=== PATIENT | female | born 1930 | race Caucasian/White ===

== ENCOUNTER 2017-01-04 15:02 | Inpatient (IN) | payer OTHER ==
[~2017-01-04] VITALS: Ht 170.2 cm; Wt 56.7 kg
[2017-01-04] VITALS: BP 125/62; PULSE 76; RESP 18; TEMP 98.6; O2SAT 95
[2017-01-04 15:02] VITALS: BP 115/63; PULSE 66; RESP 17; TEMP 97.7; O2SAT 100
--- NOTE | 2017-01-04 15:02 | NUR ---
BIB [facility] from home, Placed in room 04. Placed on monitoring specialist, blood pressure machine and pulse oximeter. To gown for exam. Side rails up. Report given to TREVIN Parsons.
--- NOTE | 2017-01-04 15:10 | NUR ---
ER at bedside examining patient.
--- NOTE | 2017-01-04 15:15 | NUR ---
PT AAOX4,COOPERATIV EW/EXAMINATION.IV 20G LAC FROM LACF IVF NS INFUSING.PT HAS NO C/O PAIN AT THIS.FAMILY AT BEDSIDE REPORTS SYNCOPAL EPUISODE X 2 W/O HEAD OR NECK TRAUMA. PT H/I DEMENTIA AND HTN. WILL MONITOR.
[2017-01-04 15:42] LABS: BASOPHILS # (AUTO) 0.1 K/uL (0.0-0.2); BASOPHILS % (AUTO) 1.5 % (0.0-2.0); EOSINOPHILS # (AUTO) 0.1 K/uL (0.0-0.4); HEMATOCRIT 39.6 % (36-48); HEMOGLOBIN 13.2 g/dL (12.0-16.0); LYMPHOCYTES % (AUTO) 16.6 % (20.5-51.5); MEAN CORPUSCULAR HEMOGLOBIN 31 pg (27-31); MEAN CORPUSCULAR HGB CONC 33 % (32-36); MEAN CORPUSCULAR VOLUME 92 fL (79.0-98.0); MONOCYTES # (AUTO) 0.5 K/uL (0.0-1.0); NEUTROPHILS # (AUTO) 4.2 K/uL (1.8-7.7); NEUTROPHILS % (AUTO) 71.9 % (40.0-70.0); PLATELET COUNT (AUTO) 154 K/uL (130-430); RED BLOOD CELL COUNT(AUTO) 4.28 MIL/uL (4.2-6.2); RED CELL DISTRIBUTION WIDTH 14.1 % (9.0-15.0); WHITE BLOOD COUNT (AUTO) 5.9 K/uL (4.8-10.8)
[2017-01-04 15:49] LABS: ANION GAP 6 (5-15); CALCIUM 9.5 mg/dL (8.4-11.0); CHLORIDE 108 mmol/L (98-107); CREATININE 1.56 mg/dL (0.55-1.30); GLUCOSE 85 mg/dL (70-99); POTASSIUM 4.7 mmol/L (3.5-5.1); SODIUM SERUM 138 mmol/L (136-145); UREA NITROGEN, BLOOD 31 mg/dL (8-21)
[2017-01-04 15:54] LABS: ALANINE AMINOTRANSFERASE 17 U/L (12-78); ALBUMIN 3.3 g/dL (3.4-4.8); ASPARTATE AMINOTRANSFERASE 21 U/L (10-37); TOTAL BILIRUBIN 0.4 mg/dL (0.0-1.0); TOTAL PROTEIN, SERUM 6.9 g/dL (6.4-8.3)
--- NOTE | 2017-01-04 16:30 | NUR ---
PT AAO,VSS ,NO ACUTE DISTRESS NOTED.CONTINUING TO MONITOR.
--- NOTE | 2017-01-04 18:30 | NUR ---
evaluating pt in ED
[2017-01-04] MEDS ORDERED: ACETAMINOPHEN 500 MG TABLET PO PRN (18:45)
[2017-01-04] MEDS ORDERED: ZOLPIDEM TARTRATE 5 MG TABLET PO PRN (18:45)
--- NOTE | 2017-01-04 19:00 | NUR ---
Patient will be admitted to care of . Admitted to [] unit. Will go to room []. Belongings list completed. Summary report printed. Report given to [].
--- NOTE | 2017-01-04 19:16 | NUR ---
ADMIT NOTE Received pt from ER to the floor with a diagnosis of syncope. Admission process initiated. patient oriented to pain management, safety and call light-teach back done.
[2017-01-04 19:27] VITALS: BP 142/85; PULSE 66; RESP 18; TEMP 98; O2SAT 95
[2017-01-04] MEDS ORDERED: ASPIRIN 81 MG TAB.CHEW PO ONE (19:30)
--- NOTE | 2017-01-04 19:30 | NUR ---
ROUNDS PATIENT IN BED, AWAKE, ALERT, CONFUSED, VITALS STABLE. NO PAIN AND DISCOMFORT AT THIS TIME. ADMISSION ASSESSMENT DONE AND DOCUMENTED. SEE FLOWSHEET. ORIENTED TO HER ROOM, PHONE AND CALL LIGHT. SAFETY AND FALL PRECAUTION MEASURES IN PLACED. BED IN LOW AND LOCKED POSITION. BED ALARM ON. CALL LIGHT PLACED WITH PATIENT.
--- NOTE | 2017-01-04 20:22 | NUR ---
PAGED RADHA STEWARD.
--- NOTE | 2017-01-04 20:28 | NUR ---
DR. COHEN CALLED DR. HIDALGO, TROPONIN 0. 074. NEW ORDER GIVEN FOR COREG 3. 125 MG BID. WILL CONTINUE TO MONITOR.
--- NOTE | 2017-01-04 20:38 | NUR ---
CONSULT: DR ZABALA Consult was called, RE syncope apple Lopez
--- NOTE | 2017-01-04 20:40 | NUR ---
CONSULT: DR Parris GERBER Consult was called, RE syncope Jessica
[2017-01-04] MEDS: CARVEDILOL 3.125 MG TABLET (COREG) PO SCH (22:15)
[2017-01-04] MEDS: NORMAL SALINE 5 ML DISP.SYRIN IVF SCH (22:16)
--- NOTE | 2017-01-05 | NUR ---
PATIENT RESTING: Patient resting quietly. No acute distress noted. Vital signs within normal range.
--- NOTE | 2017-01-05 02:10 | NUR ---
PATIENT RESTING: Patient resting quietly. No acute distress noted. Vital signs within normal range.
[2017-01-05 04:05] VITALS: BP 118/61; PULSE 62; RESP 16; TEMP 98.2; O2SAT 96
--- NOTE | 2017-01-05 04:15 | NUR ---
DR. HIDALGO CALLED DR. HIDALGO FOR TROPONIN 0. 083, NO NEW ORDER GIVEN. WILL CONTINUE TO MONITOR.
--- NOTE | 2017-01-05 04:15 | NUR ---
PAGED DR HIDALGO, RADHA ENAMORADO.
--- NOTE | 2017-01-05 05:56 | NUR ---
2D ECHO: NOTIFIED VIA [facility].
[2017-01-05] MEDS: NORMAL SALINE 5 ML DISP.SYRIN IVF SCH ×3 (06:36→23:04)
[2017-01-05 06:40] LABS: BASOPHILS # (AUTO) 0.1 K/uL (0.0-0.2); BASOPHILS % (AUTO) 1.3 % (0.0-2.0); EOSINOPHILS # (AUTO) 0.1 K/uL (0.0-0.4); EOSINOPHILS % (AUTO) 2.3 % (0.0-4.0); HEMATOCRIT 37.4 % (36-48); HEMOGLOBIN 12.5 g/dL (12.0-16.0); LYMPHOCYTES # (AUTO) 1.5 K/uL (1.0-5.5); LYMPHOCYTES % (AUTO) 25.7 % (20.5-51.5); MEAN CORPUSCULAR HEMOGLOBIN 31 pg (27-31); MEAN CORPUSCULAR HGB CONC 33 % (32-36); MEAN CORPUSCULAR VOLUME 93 fL (79.0-98.0); MONOCYTES # (AUTO) 0.6 K/uL (0.0-1.0); MONOCYTES % (AUTO) 10.4 % (1.7-9.3); NEUTROPHILS # (AUTO) 3.7 K/uL (1.8-7.7); NEUTROPHILS % (AUTO) 60.3 % (40.0-70.0); PLATELET COUNT (AUTO) 172 K/uL (130-430); RED BLOOD CELL COUNT(AUTO) 4.05 MIL/uL (4.2-6.2); RED CELL DISTRIBUTION WIDTH 13.8 % (9.0-15.0)
[2017-01-05 06:43] LABS: ALANINE AMINOTRANSFERASE 16 U/L (12-78); ALBUMIN 3.2 g/dL (3.4-4.8); ANION GAP 7 (5-15); ASPARTATE AMINOTRANSFERASE 19 U/L (10-37); CALCIUM 9.4 mg/dL (8.4-11.0); CHLORIDE 107 mmol/L (98-107); CREATININE 1.35 mg/dL (0.55-1.30); GLUCOSE 67 mg/dL (70-99); POTASSIUM 4.3 mmol/L (3.5-5.1); SODIUM SERUM 140 mmol/L (136-145); TOTAL BILIRUBIN 0.4 mg/dL (0.0-1.0); TOTAL PROTEIN, SERUM 6.5 g/dL (6.4-8.3); UREA NITROGEN, BLOOD 29 mg/dL (8-21)
--- NOTE | 2017-01-05 06:45 | NUR ---
CLOSING NOTES PATIENT AWAKE, VITALS STABLE, NO CHEST PAIN THE WHOLE SHIFT. ALL NEEDS ATTENDED TO. CALL LIGHT PLACED WITH PATIENT.
--- NOTE | 2017-01-05 08:00 | NUR ---
AM Initial Note Pt aaox2 with confusion and forgetfulness. No complaints of pain or discomfort. No signs of syncope. No distress noted. 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 Left elbow abrasion noted. Pt is incontinent. Incontinent care and hygiene done. Safety and fall precautions enforced with bed alarm armed and closed to nurse's station. Encouraged to call for assistance. Call light within reach. Will monitor.
[2017-01-05 08:30] VITALS: BP 113/72; PULSE 62; RESP 18; TEMP 98.1; O2SAT 97
--- NOTE | 2017-01-05 09:30 | NUR ---
Dr. Murphy Neurologist inside room assessing patient.
[2017-01-05] MEDS: ASPIRIN 81 MG TAB.CHEW PO SCH (09:32)
[2017-01-05] MEDS: CARVEDILOL 3.125 MG TABLET (COREG) PO SCH (09:33)
--- NOTE | 2017-01-05 10:00 | NUR ---
Rounds Pt awake resting in bed. No signs of facial grimacing for pain or discomfort. No distress noted. Incontinent care done. Encouraged to call for assistance. Will monitor.
[2017-01-05 11:04] VITALS: BP 104/60; PULSE 69; RESP 18; TEMP 98; O2SAT 97
[2017-01-05] MEDS ORDERED: MEMA7CAP PO (11:10)
[2017-01-05] MEDS ORDERED: LOSA50TA3 PO (11:10)
[2017-01-05] MEDS ORDERED: DONE10TA44 PO (11:10)
[2017-01-05] MEDS ORDERED: SER25 PO ×2 (11:10)
[2017-01-05] MEDS ORDERED: LIP20 PO (11:10)
[2017-01-05] MEDS ORDERED: vitamin B12 PO (11:10)
[2017-01-05] MEDS ORDERED: ASPI81TA2 PO (11:10)
[2017-01-05] MEDS ORDERED: ALEN10TA6 PO (11:10)
[2017-01-05] MEDS ORDERED: CEL20 PO (11:10)
--- NOTE | 2017-01-05 12:00 | NUR ---
Rounds Pt awake eating lunch. No complaints of pain or discomfort. No signs of syncopal episodes. Kept comfortable. Encouraged to call for assistance. Call light within reach. Will monitor.
--- NOTE | 2017-01-05 12:50 | NUR ---
Dr. Jamey HARRINGTON inside room assessing patient. Plan of care discussed.
--- NOTE | 2017-01-05 14:00 | NUR ---
Resting Pt asleep. No significant changes noted. Bed alarm armed. Will monitor.
--- NOTE | 2017-01-05 16:30 | NUR ---
Rounds Pt asleep. No signs of facial grimacing for pain or discomfort. No distress noted. Will monitor. Bed alarm armed.
[2017-01-05 17:15] VITALS: BP 119/59; PULSE 67; RESP 18; TEMP 98.1; O2SAT 97
--- NOTE | 2017-01-05 18:30 | NUR ---
CLOSING NOTES PT AWAKE RESTING IN BED. NO SIGNIFICANT CHANGES NOTED. ENCOURAGED TO CALL FOR ASSISTANCE. CALL LIGHT WITHIN REACH. WILL ENDORSE CARE TO INCOMING NURSE.
--- NOTE | 2017-01-05 19:25 | NUR ---
OPENING NOTE Pt. and bedside report received from day shift nurse. Pt. is awake, alert, and resting quietly in bed. Respirations are even and unlabored with visible chest rise and fall. Plan of care and safety measures discussed with pt. Pt. verbalized understanding. Educated pt. regarding call light use and to call for any needs. Safety measures in place. Bed alarm on. Will continue to monitor.
[2017-01-05 20:00] VITALS: BP 120/57; PULSE 70; RESP 16; TEMP 98.4; O2SAT 98
--- NOTE | 2017-01-05 22:30 | NUR ---
ROUNDS Pt. is awake and resting quietly in bed. No s/s of acute distress. Pt. denies any pain or discomfort at this time. Safety measures in place. Bed alarm on. Room near nurses station. Reminded pt. on how to use call light for any needs and assistance OOB. Pt. verbalized understanding. Will continue to monitor.
[2017-01-06 00:33] VITALS: BP 108/63; PULSE 60; RESP 18; TEMP 98.5; O2SAT 97
--- NOTE | 2017-01-06 00:57 | NUR ---
IV RE-INSERTION: Complaining of pain to IV site to left AC. Restarted on left hand 24g. Successful after 2 attempts. Flushing well. Saline locked. Will observe for any signs of infiltration.
--- NOTE | 2017-01-06 01:43 | NUR ---
BED ALARM/ASSISTED TO BATHROOM TO VOID Bed alarm went off. Pt. is forgetful and requires constant reminders on how to use call light for assistance and to get OOB. Assisted pt. to bathroom to void. Gait is weak and requires nurse assist. Pt. denies any dizziness or pain at this time. Safety measures in place. Bed alarm on. Room near nurses station. Will continue to monitor.
--- NOTE | 2017-01-06 02:12 | NUR ---
ROUNDS Pt. is resting quietly in bed with eyes closed. Respirations are even and unlabored with visible chest rise and fall. No s/s of acute distress. Safety measures in place. Bed alarm on. Room near nurses station. Will continue to monitor.
--- NOTE | 2017-01-06 04:05 | NUR ---
ASSISTED TO BATHROOM TO VOID Assisted pt. to bathroom to void; pt. tolerated well with assist. Pt. denies any dizziness or discomfort at this time. Safety measures in place. Bed alarm on. Will continue to monitor.
[2017-01-06 04:21] VITALS: BP 110/68; PULSE 64; RESP 18; TEMP 98.4; O2SAT 96
[2017-01-06] MEDS: NORMAL SALINE 5 ML DISP.SYRIN IVF SCH (06:14)
--- NOTE | 2017-01-06 06:30 | NUR ---
SALINE FLUSH Saline flush administered as ordered. No s/s of acute distress. Safety measures in place. Reminded pt. to use call light for assistance. Will continue to monitor.
--- NOTE | 2017-01-06 07:02 | NUR ---
CALLED PT.'S DAUGHTER RANI LAINEZ Called pt.'s daughter Rani Lainez at [phone] to obtain telephone consent for MRI head/brain without contrast test. Left voice message. Will wait for call back.
[2017-01-06 07:10] LABS: BASOPHILS % (AUTO) 0.6 % (0.0-2.0); EOSINOPHILS # (AUTO) 0.2 K/uL (0.0-0.4); EOSINOPHILS % (AUTO) 2.5 % (0.0-4.0); HEMATOCRIT 37.5 % (36-48); HEMOGLOBIN 12.6 g/dL (12.0-16.0); LYMPHOCYTES # (AUTO) 1.2 K/uL (1.0-5.5); LYMPHOCYTES % (AUTO) 15.7 % (20.5-51.5); MEAN CORPUSCULAR HEMOGLOBIN 31 pg (27-31); MEAN CORPUSCULAR HGB CONC 34 % (32-36); MEAN CORPUSCULAR VOLUME 93 fL (79.0-98.0); MONOCYTES # (AUTO) 0.8 K/uL (0.0-1.0); NEUTROPHILS # (AUTO) 5.6 K/uL (1.8-7.7); NEUTROPHILS % (AUTO) 71.2 % (40.0-70.0); PLATELET COUNT (AUTO) 162 K/uL (130-430); RED BLOOD CELL COUNT(AUTO) 4.04 MIL/uL (4.2-6.2); RED CELL DISTRIBUTION WIDTH 13.8 % (9.0-15.0)
[2017-01-06 07:22] LABS: WHITE BLOOD COUNT (AUTO) 7.8 K/uL (4.8-10.8)
--- NOTE | 2017-01-06 07:37 | NUR ---
OBTAINED TELEPHONE CONSENT FROM PT.'S DAUGHTER RANI/CLOSING NOTES Late entry due to pt. care. Checklist and consent obtained from pt.'s daughter, Rani Lainez [phone] for MRI head/brain without contrast test. Witnessed with Rosemary Worrell RN. Form placed in pt.'s chart. Pt. is resting quietly in bed with no s/s of acute distress. All needs met throughout shift. No significant changes. Safety measures in place. Bed alarm on. Room near nurses station. Endorsed care to oncoming day shift nurse.
[2017-01-06 07:40] VITALS: BP 144/76; PULSE 65; RESP 18; TEMP 98.6; O2SAT 97
[2017-01-06 07:42] LABS: ANION GAP 5 (5-15); CALCIUM 9.5 mg/dL (8.4-11.0); CHLORIDE 106 mmol/L (98-107); CREATININE 1.45 mg/dL (0.55-1.30); GLUCOSE 86 mg/dL (70-99); POTASSIUM 4.5 mmol/L (3.5-5.1); SODIUM SERUM 141 mmol/L (136-145); UREA NITROGEN, BLOOD 26 mg/dL (8-21)
--- NOTE | 2017-01-06 07:50 | NUR ---
Initial Note Received pt in bed, no s/s of distress or sob noted, pt has no c/o pain at this time, pt in stable condition, pt aaox2, verbal, provided pt with reality orientation. Bed at lowest position, call light within reach, will continue to monitor pt for any changes, fall precautions in place. Pt has no c/o headache or dizziness at this time.
[2017-01-06 08:06] LABS: ALANINE AMINOTRANSFERASE 17 U/L (12-78); ALBUMIN 3.1 g/dL (3.4-4.8); ASPARTATE AMINOTRANSFERASE 19 U/L (10-37); TOTAL BILIRUBIN 0.3 mg/dL (0.0-1.0); TOTAL PROTEIN, SERUM 6.4 g/dL (6.4-8.3)
[2017-01-06] MEDS: ASPIRIN 81 MG TAB.CHEW PO SCH (08:36)
--- NOTE | 2017-01-06 09:43 | NUR ---
Nutrition Update Lakhwinder Scale 16 noted. Pt admitted for syncope. Diet: BMI: 19.6 kg/m2 RD to follow per nutrition care standards. Nutrition Update Lakhwinder Scale 16 noted. Pt admitted for syncope. Diet: regular BMI: 19.6 kg/m2 RD to follow per nutrition care standards.
[2017-01-06 10:14] VITALS: BP 130/74; PULSE 66; RESP 18; TEMP 98.6; O2SAT 98
--- NOTE | 2017-01-06 10:33 | NUR ---
ROUNDS Pt in bed, no s/s of distress or sob noted, pt has no c/o pain, pt in stable condition, pt resting comfortably, will continue to monitor pt for any changes.
--- NOTE | 2017-01-06 11:15 | NUR ---
D/C Patient Patient given medication reconciliation form and D/C instructions. Exit Care provided. Patient verbalized understanding. MD discussed with patient the results and treatment provided. Ambulatory with steady gait for discharge to home. Patient in stable condition, ID band removed. IV catheter removed, intact and dressing applied, no active bleeding. Patient educated on pain management. All belongings sent with patient. Educated daughter on d/c instructions.
--- NOTE | 2017-01-07 13:30 | NUR ---
Discharge Follow Up Phone Call TIP MENDER phoned patient, , and spoke with patient's daughter, Rani, with whom she lives. Rani stated that patient is more alert and oriented than she has been for some time. She attributes this to being off the blood pressure medication. They are monitoring patient's BP as directed and know to phone the PMD if the SBP >170. Patient has a follow up appointment with her PCP on 01/20/17. TIP MENDER asked if she had a chance to review materials provided by [facility] regarding caregivers and placement for the future. Rani had not. TIP MENDER asked if patient was [facility] eligible. Discussed benefits of [facility] and eligibility requirements. TIP MENDER offered to refer patient to [facility] for evaluation of eligibility. Rani declined for now. No further follow up calls requested.
== END 2017-01-06 11:10 | disposition home or self-care (01) | DRG 314 ==
LOC: SED 15:02 → STU 18:37
PROVIDERS: ADMIT Internal Medicine; ATTEND Internal Medicine
DX: I95.9 Hypotension, unspecified (principal); N17.0 Acute kidney failure with tubular necrosis; I24.8 Other forms of acute ischemic heart disease; E86.0 Dehydration; F02.80 Dementia in other diseases classified elsewhere, unspecified severity, without behavioral disturbance, psychotic disturbance, mood disturbance, and anxiety; F17.210 Nicotine dependence, cigarettes, uncomplicated; G30.9 Alzheimer's disease, unspecified; J44.9 Chronic obstructive pulmonary disease, unspecified; M81.0 Age-related osteoporosis without current pathological fracture; M19.90 Unspecified osteoarthritis, unspecified site; I12.9 Hypertensive chronic kidney disease with stage 1 through stage 4 chronic kidney disease, or unspecified chronic kidney disease; N18.3 Chronic kidney disease, stage 3 (moderate); R29.6 Repeated falls; Z79.899 Other long term (current) drug therapy; Z79.82 Long term (current) use of aspirin; Z82.49 Family history of ischemic heart disease and other diseases of the circulatory system; Z90.710 Acquired absence of both cervix and uterus; T46.5X5A Adverse effect of other antihypertensive drugs, initial encounter
CPT/HCPCS: 36415; 70450-TC; 71010; 76770; 80053; 83735-TC; 84484; 85025; 93005; 93306; 93880; 97116-GP; 99285

== ENCOUNTER 2017-08-25 20:20 | Inpatient (IN) | payer OTHER ==
[~2017-08-25] VITALS: Ht 170.2 cm; Wt 60.3 kg
[~2017-08-25 20:20] MED LIST: ALEN10TA6 PO; ASPI81TA2 PO; CEL20 PO; DONE10TA44 PO; LIP20 PO; MEMA7CAP PO; SER25 PO; vitamin B12 PO
[2017-08-25 20:21] VITALS: BP_SYST 123
[2017-08-25] MEDS ORDERED: NACL 0.9% 1,000 ML IV ONE (21:00)
[2017-08-25 21:30] LABS: BASOPHILS # (AUTO) 0.2 K/uL (0.0-0.2); BASOPHILS % (AUTO) 1.8 % (0.0-2.0); EOSINOPHILS # (AUTO) 0.1 K/uL (0.0-0.4); EOSINOPHILS % (AUTO) 0.8 % (0.0-4.0); HEMATOCRIT 40.3 % (36-48); HEMOGLOBIN 13.5 g/dL (12.0-16.0); LYMPHOCYTES # (AUTO) 0.7 K/uL (1.0-5.5); LYMPHOCYTES % (AUTO) 7.1 % (20.5-51.5); MEAN CORPUSCULAR HEMOGLOBIN 32 pg (27-31); MEAN CORPUSCULAR HGB CONC 34 % (32-36); MEAN CORPUSCULAR VOLUME 94 fL (79.0-98.0); MONOCYTES # (AUTO) 1.1 K/uL (0.0-1.0); MONOCYTES % (AUTO) 11.5 % (1.7-9.3); NEUTROPHILS # (AUTO) 7.3 K/uL (1.8-7.7); NEUTROPHILS % (AUTO) 78.8 % (40.0-70.0); PLATELET COUNT (AUTO) 180 K/uL (130-430); RED BLOOD CELL COUNT(AUTO) 4.29 MIL/uL (4.2-6.2); RED CELL DISTRIBUTION WIDTH 12.7 % (9.0-15.0); WHITE BLOOD COUNT (AUTO) 9.4 K/uL (4.8-10.8)
[2017-08-25 21:45] LABS: ANION GAP 8 (5-15); CALCIUM 9.6 mg/dL (8.4-11.0); CHLORIDE 107 mmol/L (98-107); CREATININE 1.58 mg/dL (0.55-1.30); GLUCOSE 99 mg/dL (70-99); POTASSIUM 3.9 mmol/L (3.5-5.1); SODIUM SERUM 143 mmol/L (136-145); UREA NITROGEN, BLOOD 31 mg/dL (8-21)
[2017-08-25 22:07] LABS: ALANINE AMINOTRANSFERASE 13 U/L (12-78); ALBUMIN 3.1 g/dL (3.4-4.8); ASPARTATE AMINOTRANSFERASE 14 U/L (10-37); THYROID STIMULATING HORMONE 3.31 uIu/mL (0.36-3.74); TOTAL BILIRUBIN 0.3 mg/dL (0.0-1.0)
[2017-08-25 22:08] LABS: BILIRUBIN,URINE 1+ (NEGATIVE); CLARITY/URINE SL HAZY (CLEAR); COLOR,URINE YELLOW (YELLOW); GLUCOSE,URINE NEGATIVE (NEGATIVE); KETONES,URINE TRACE (NEGATIVE); LEUKOCYTE ESTERASE ,URINE NEGATIVE (NEGATIVE); NITRITE, URINE NEGATIVE (NEGATIVE); PH,URINE 5.5 (5.0-8.0); PROTEIN URINE NEGATIVE (NEGATIVE); UROBILINOGEN,URINE 0.2 (0.2-1.0)
[2017-08-25 22:31] LABS: BLOOD, URINE TRACE (NEGATIVE)
[2017-08-25 22:34] LABS: BACTERIA,URINE FEW /HPF (None Seen); WBC,URINE 0-3 /HPF (0-3)
[2017-08-25 22:35] LABS: FINE GRANULAR CASTS,URINE 0-10 /LPF (None Seen); MUCUS,URINE 2+ /LPF (None Seen)
[2017-08-25] MEDS ORDERED: NACL 0.9% 1,000 ML IV SCH (23:13)
[2017-08-25 23:43] VITALS: BP_SYST 132
[2017-08-26] VITALS (7 sets, daily range): BP systolic 115–164
[2017-08-26] MEDS ORDERED: FLU VACC QS 2017-18(36MOS+)/PF 0.5 ML/SYR SYRINGE I.M. PRN (01:00)
[2017-08-26] MEDS ORDERED: ASPIRIN 325 MG TABLET (ECOTRIN) PO SCH (05:15)
[2017-08-26] MEDS: NACL 0.9% 1,000 ML IV SCH ×3 (09:15→22:58)
[2017-08-26 09:56] LABS: ANION GAP 9 (5-15); CHLORIDE 109 mmol/L (98-107); CREATININE 1.17 mg/dL (0.55-1.30); GLUCOSE 103 mg/dL (70-99); POTASSIUM 3.9 mmol/L (3.5-5.1); SODIUM SERUM 141 mmol/L (136-145); UREA NITROGEN, BLOOD 23 mg/dL (8-21)
[2017-08-26 10:01] LABS: ALANINE AMINOTRANSFERASE 14 U/L (12-78); ASPARTATE AMINOTRANSFERASE 18 U/L (10-37); TOTAL BILIRUBIN 0.5 mg/dL (0.0-1.0)
[2017-08-26] MEDS ORDERED: LOSA25TA3 PO (10:01)
[2017-08-26] MEDS ORDERED: QUET25TA34 PO (10:01)
[2017-08-26] MEDS ORDERED: MEMA1CAP3 PO (10:01)
[2017-08-26] MEDS ORDERED: CHOL500037 PO (10:02)
[2017-08-26] MEDS: CITALOPRAM HYDROBROMIDE 20 MG TABLET PO SCH (10:25)
[2017-08-26] MEDS ORDERED: MORPHINE 2 MG/ML INJ. SYRINGE IVP PRN (11:15)
[2017-08-26] MEDS ORDERED: ENALAPRILAT DIHYDRATE 1.25 MG/ML VIAL IVP PRN (11:15)
[2017-08-26] MEDS ORDERED: ACETAMINOPHEN 325 MG TABLET PO PRN (11:15)
[2017-08-26] MEDS ORDERED: QUEtiapine FUMARATE 25 MG TABLET PO SCH ×2 (21:00)
[2017-08-26] MEDS ORDERED: ATORVASTATIN 20 MG TABLET PO SCH (21:00)
[2017-08-27 03:24] VITALS: BP_SYST 136
[2017-08-27 08:00] VITALS: BP_SYST 128
[2017-08-27 08:54] LABS: THYROID STIMULATING HORMONE 4.47 uIu/mL (0.34-4.82)
[2017-08-27] MEDS ORDERED: ASPIRIN 81 MG TAB.CHEW PO SCH (09:00)
[2017-08-27] MEDS ORDERED: LOSARTAN POTASSIUM 25 MG TABLET PO SCH (09:00)
[2017-08-27] MEDS: CITALOPRAM HYDROBROMIDE 20 MG TABLET PO SCH (09:02)
[2017-08-27 11:27] VITALS: BP_SYST 129
[2017-08-27] MEDS: NACL 0.9% 1,000 ML IV SCH (15:15)
[2017-08-27 16:08] VITALS: BP_SYST 140
[2017-08-27 18:03] VITALS: BP_SYST 121
[2017-08-31] MEDS ORDERED: ALENDRONATE SODIUM 10 MG TABLET (FOSAMAX) PO SCH (06:00)
== END 2017-08-27 18:45 | disposition home or self-care (01) | DRG 281 ==
LOC: SED 20:20 → STU 23:13
PROVIDERS: ADMIT Internal Medicine Hospice and Palliative Medicine; ATTEND Internal Medicine Hospice and Palliative Medicine
DX: I21.4 Non-ST elevation (NSTEMI) myocardial infarction (principal); N18.4 Chronic kidney disease, stage 4 (severe); F03.90 Unspecified dementia, unspecified severity, without behavioral disturbance, psychotic disturbance, mood disturbance, and anxiety; E86.0 Dehydration; R40.4 Transient alteration of awareness; I12.9 Hypertensive chronic kidney disease with stage 1 through stage 4 chronic kidney disease, or unspecified chronic kidney disease; Z90.710 Acquired absence of both cervix and uterus; Z79.82 Long term (current) use of aspirin; Z79.899 Other long term (current) drug therapy
CPT/HCPCS: 36415; 71010; 80053; 80061; 81000-TC; 83735-TC; 83880; 84443-TC; 84484; 85025; 93005; 96360; 97116-GP; 99285; J7030; Q2037